=== PATIENT | male | born 1965 | race Caucasian/White ===

== ENCOUNTER 2018-12-31 21:45 | Emergency (ER) | payer OTHER ==
[~2018-12-31] VITALS: Wt 108.8 kg
[~2018-12-31 21:45] MED LIST: ANTIHISTAMINE25 M3; CARTIA XT120 MG PO; CEPHALEXIN500 M2 PO; CLARITIN10 M1 PO; PRAVASTATIN SOD40 MG PO; PRAVASTATIN20 MG; TOPCARE ASPIRIN81 MG PO; TOPCARE OMEPRAZ20 MG PO; TYLENOL WITH CO1 TA1 PO
[2018-12-31 23:00] LABS: EOS # 0.2 (0.04-0.40); HEMATOCRIT 41.4 % (42.0-52.0); LYMPH# 2.1 (1.50-4.00); MEAN CELL VOLUME 94 fl (78-100); MEAN CORPUSCULAR HEMOGLOBIN 32 pg (27-31); MEAN CORPUSCULAR HGB CONC 34 g/dL (33-37); MEAN PLATELET VOLUME 10.8 fl (7.4-10.4); MONO # 0.9 (0.20-0.80); NEU # 6.6 (1.40-6.50); PLATELET COUNT 305 K/mm3 (130-400); RED BLOOD COUNT 4.42 M/mm3 (4.20-5.60); WHITE BLOOD COUNT 9.8 K/mm3 (4.8-10.8)
[2018-12-31 23:06] LABS: POTASSIUM 3.8 mmol/L (3.5-5.1)
[2018-12-31 23:07] LABS: CALCIUM 9.4 mg/dL (8.3-10.5)
[2018-12-31 23:10] LABS: TOTAL BILIRUBIN 0.3 mg/dL (0.2-1.2)
[2018-12-31 23:38] LABS: URINE APPEARANCE CLEAR; URINE BILIRUBIN NEGATIVE (NEGATIVE); URINE BLOOD NEGATIVE (NEGATIVE); URINE COLOR YELLOW; URINE GLUCOSE NEGATIVE (NEGATIVE); URINE KETONE NEGATIVE (NEGATIVE); URINE LEUKOCYTE ESTERASE NEGATIVE (NEGATIVE); URINE NITRATE NEGATIVE (NEGATIVE); URINE PROTEIN(semi-quant) NEGATIVE (NEGATIVE); URINE UROBILINOGEN NORMAL (NORMAL); URINE WBC 0-1 /hpf (0-3)
[2019-01-01 00:29] VITALS: BP 124/84
== END 2019-01-01 00:30 | disposition home or self-care (01) ==
LOC: ED 21:45
PROVIDERS: Physician Assistant
DX: M62.830 Muscle spasm of back (principal); I48.91 Unspecified atrial fibrillation; F17.210 Nicotine dependence, cigarettes, uncomplicated; Z79.82 Long term (current) use of aspirin; Z90.89 Acquired absence of other organs
CPT/HCPCS: J1885; J2360